=== PATIENT | male | born 1950 | race African-American/Black ===

== ENCOUNTER 2021-10-03 14:22 | Emergency (ER) | payer MEDICARE, MEDICAID ==
[~2021-10-03] VITALS: Ht 190.5 cm; Wt 118.0 kg
[2021-10-03] MEDS ORDERED: HYDROCODONE/ACETAMINOPHEN 10/325MG TABLET PO ONE (15:30)
[2021-10-03] MEDS ORDERED: IBUPROFEN 600MG TABLET PO ONE (15:30)
[2021-10-03] MEDS ORDERED: DICL75TA5 MT (20:41)
[2021-10-03] MEDS ORDERED: CYCL5TAB MT (20:42)
[2021-10-03] MEDS ORDERED: ACET650T37 MT (20:42)
[2021-10-03] MEDS ORDERED: HYDROCODONE/ACETAMINOPHEN 10/325MG TABLET PO NR (20:45)
[2021-10-03 20:56] VITALS: BP 145/89
[2021-10-03] MEDS ORDERED: IBUPROFEN 400MG TABLET PO ONE (21:00)
== END 2021-10-03 20:57 | disposition home or self-care (01) ==
LOC: ER 14:44
DX: M54.50 Low back pain, unspecified (principal)
CPT/HCPCS: 72131; 99284